=== PATIENT | male | born 1985 | race Caucasian/White ===

== ENCOUNTER 2024-08-13 10:04 | Day surgery (SDC) | payer OTHER, SELFPAY ==
[2024-08-11 16:04] VITALS: BMI 29.5
[2024-08-13] VITALS (8 sets, daily range): BP systolic 114–131; BP diastolic 72–88; PULSE 69–89; RESP 12–18; TEMP 36.1–36.4; O2SAT 97–100; BMI 29.5
[2024-08-13] MEDS: LACTATED RINGERS 1,000 ML 42 ML IV ×2 (10:50→11:45)
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
[2024-08-13] MEDS: CEFAZOLIN 2 GM/100 ML PREMIX 100 ML IV (11:20)
--- NOTE | 2024-08-13 11:29 | SUR.OPER ---
Supine on padded OR bed, head on pillow, arms secured on padded arm boards at <90 degrees abduction, legs uncrossed, safety belt at thigh, tape over blanket over lower legs.
[2024-08-13] MEDS: BUPIVACAINE 0.25% (PF) 30 ML, EPINEPHrine 0.15 MG INJ (11:43)
--- NOTE | 2024-08-13 12:31 | P.OP_ITS ---
Operative Date/Time/Diagnoses Date of procedure: 08/13/24 Time of procedure: 11:30 Pre-op diagnosis: Painful orthopedic hardware right foot Post-op diagnosis: same Procedure & Clinicians Procedure: Hardware removal right foot Same procedure as scheduled: Yes Indications: The patient is a 38-year-old that had a [place]franc [place] He is now healed and has painful hardware with loose screws. He is indicated for hardware removal. He has a known broken drill bit 1st metatarsal. We discussed the risks of hardware removal including incomplete hardware removal with broken screws. We discussed persistent pain posttraumatic arthritis need for additional procedures. Nerve vessel damage. And wound heal ing problems or infection. The patient elects to proceed. Consent was signed. Surgeon: Macie Hansen Click Yes if Unassisted: Yes Anesthesia Type: General and Local Operative Notes Findings: Retained Lisfranc plate and screws spanning the 1st and 2nd TMT joints. There is retained broken drill bit in the 1st metatarsal. On screw removal 1 of the 1st metatarsal base screws did break off and was retained in the bone. The remainder of the plate and screws removed. Hardware removal was confirmed on intraoperative fluoroscopy. Closure Type: primary Specimen(s): none sent Estimated Blood Loss (mL): 5 Blood products transfused: none Tourniquet time (min): 36 Procedure in detail: Patient was seen in the preoperative area the site of surgery was marked informed consent confirmed this was the right foot. The patient was brought back to the operating room by the anesthesia team positioned supine position on the table. The bony prominences well padded. An SCD was placed on the contralateral lower extremity. A well-padded thigh tourniquet was placed on the operative extremity. The right lower extremity was prepped and draped in standard sterile fashion a formal time-out procedure was performed confirming the patient's side and site of surgery administration of appropriate preoperative antibiotic and presence of informed consent. All were in agreement. Attention turned to the right foot there was a longitudinal incision between the 1st and 2nd metatarsals over the dorsum of the foot this scar was then reopened careful dissection was taken both medial and lateral to the neurovascular bundle and incision deep was made just medial to the EHL tendon down onto the plate and screws along the 1st metatarsal additionally laterally in the area of the prominent 2nd metatarsal base screw deep dissection was taken lateral to the neurovascular bundle to expose the lateral aspect of the plate. Screws were removed with a screwdriver. One of the 1st metatarsal base screws did break off during removal. The screw head was removed and the screw shaft maintained bone. Once this was completed osteotome and [place] were used to elevate plate and the plate was removed. Rongeur was used to remove bony prominences. Once this was completed tourniquet was released hemostasis was achieved and the wound was irrigated and closed with 4-0 Monocryl and 4-0 nylon suture. 10 cc of 0.25% Marcaine with epinephrine were injected for local anesthetic. A soft dressing with Xeroform gauze and Webril and Jorge wrap was applied. The patient was taken to the recovery room in good condition there were no immediate complications from this procedure. All counts were. Complications: none Post-operative Condition: stable Disposition: PACU Plan for aftercare: Weightbear as tolerated in hard-soled shoe or boot. Keep dressing clean dry and intact until follow up. Sutures remain in place 2-3 weeks.
[2024-08-13] MEDS: OXYCODONE/ACETAMINOPHEN 5/325 TABLET 1 TAB PO (13:09)
== END 2024-08-13 13:30 | disposition home or self-care (01) ==
PROVIDERS: PCP Nurse Practitioner Family; Referring Provider Orthopaedic Surgery; Visit Provider Orthopaedic Surgery Foot and Ankle Surgery
PROC: (CPT 20680; principal; 2024-08-13 11:15)
DX: T84.84XA Pain due to internal orthopedic prosthetic devices, implants and grafts, initial encounter (principal); T84.213A Breakdown (mechanical) of internal fixation device of bones of foot and toes, initial encounter; S92.811S Other fracture of right foot, sequela; V29.99XS Rider (driver) (passenger) of other motorcycle injured in unspecified traffic accident, sequela
CPT/HCPCS: 20680; J0171; J0690; J1100; J1885; J2250; J2405; J2704; J3010

== ENCOUNTER → 2025-01-19 08:09 | Outpatient (CLI) | payer OTHER, SELFPAY ==
--- NOTE | 2025-01-19 08:20 | DI.RAD.S_ITS ---
PROCEDURE: XR FOOT RT 2V INDICATIONS: VA DISABILITY TECHNIQUE: 2 views of the foot were acquired. COMPARISON: None. FINDINGS: Bones: No fractures or dislocations. No suspicious bony lesions. Surgical hardware is noted within the base of the 1st metatarsal without evidence of complication. Degenerative changes are present at the 1st and 2nd tarsometatarsal joints with marginal osteophytosis. Soft tissues: No tibiotalar joint effusion. Achilles tendon appears normal. IMPRESSION: Degenerative and postsurgical change without evidence of acute osseous abnormality or hardware complication. Dictated by: Devon Grover M.D. on 01/20/2025 at 4:48 Approved by: Devon Grover M.D. on 01/20/2025 at 4:49
--- NOTE | 2025-01-19 08:21 | DI.RAD.S_ITS ---
PROCEDURE: XR HAND RT 2V INDICATIONS: VA DISABILITY TECHNIQUE: 2 views of the hand(s) acquired. COMPARISON: None. FINDINGS: Bones: No fractures or dislocations. Carpal bones are normally aligned. No suspicious bony lesions. Soft tissues: No suspicious soft tissue calcifications. IMPRESSION: No acute bony abnormality. Dictated by: Devon Grover M.D. on 01/20/2025 at 4:45 Approved by: Devon Grover M.D. on 01/20/2025 at 4:46
--- NOTE | 2025-01-19 08:21 | DI.RAD.S_ITS ---
PROCEDURE: XR HAND LT 2V INDICATIONS: VA DISABILITY TECHNIQUE: 2 views of the hand(s) acquired. COMPARISON: None. FINDINGS: Bones: No fractures or dislocations. Carpal bones are normally aligned. No suspicious bony lesions. Soft tissues: No suspicious soft tissue calcifications. IMPRESSION: No acute bony abnormality. Dictated by: Devon Grover M.D. on 01/20/2025 at 4:47 Approved by: Devon Grover M.D. on 01/20/2025 at 4:47
--- NOTE | 2025-01-19 08:21 | DI.RAD.S_ITS ---
PROCEDURE: XR WRIST RT 2V INDICATIONS: VA DISABILITY TECHNIQUE: 2 views of the wrist were acquired. COMPARISON: None. FINDINGS: Bones: No fractures or dislocations. No suspicious bony lesions. Soft tissues: No suspicious soft tissue calcifications. IMPRESSION: No acute bony abnormality. Dictated by: Devon Grover M.D. on 01/20/2025 at 4:46 Approved by: Devon Grover M.D. on 01/20/2025 at 4:47
--- NOTE | 2025-01-19 08:23 | DI.RAD.S_ITS ---
PROCEDURE: XR CLAVICLE LT INDICATIONS: VA DISABILITY TECHNIQUE: 2 views of the clavicle were acquired. COMPARISON: None. FINDINGS: Bones: Old healed mid clavicular fracture with extensive callus formation. No acute fractures or dislocations. No suspicious bony lesions. Soft tissues: No suspicious soft tissue calcifications. IMPRESSION: No acute bony abnormality. Old healed right midclavicular fracture noted. Dictated by: Devon Grover M.D. on 01/20/2025 at 4:49 Approved by: Devon Grover M.D. on 01/20/2025 at 4:50
--- NOTE | 2025-01-19 08:23 | DI.RAD.S_ITS ---
PROCEDURE: XR RIBS BI MIN 4V W CXR1V INDICATIONS: VA DISABILITY TECHNIQUE: 2 views of the ribs were acquired, along with a single view chest. COMPARISON: None. FINDINGS: Surgical changes and devices: None. Bones and chest wall: No fractures or dislocations. No suspicious bony lesions. Overlying soft tissues appear unremarkable. Lungs and pleura: No pleural effusions or pneumothorax. Lungs appear clear. Mediastinum: Mediastinal contours appear normal. Heart size is normal. IMPRESSION: No displaced rib fracture or pneumothorax. Dictated by: Devon Grover M.D. on 01/20/2025 at 4:50 Approved by: Devon Grover M.D. on 01/20/2025 at 4:51
--- NOTE | 2025-01-19 08:30 | DI.ECHO.S_ITS ---
[facility] +---------+ [facility] : : [address] : : [place] : : [id number] : : Phone: [phone] Echocardiogram Report + + :Name: SUJEY BAKER Study Date: 01/19/2025 Height: 74 in : :Hospital ReadingLocation: Weight: 220 lb : : Gender: Male BSA: 2.3 m2 : :: 1985 Age: 39 yrs BP: 134/88 mmHg: :Reason For Study: PAIN : :Ordering Physician: ANITA, : :ALIA Performed By: Nancy Staples : :Referring: ALIA HOWARD : + + Interpretation Summary Normal echo study. Procedure: A two-dimensional transthoracic echocardiogram with color flow and Doppler was performed. The study quality was technically adequate. There is no prior echocardiogram noted for this patient. The patient was in sinus rhythm with heart rates between 72-81 bpm during the exam. Left Ventricle: The left ventricle appears normal in size, wall thickness, and systolic function without any focal wall motion abnormalities. The ejection fraction is estimated to be 55-60%. Right Ventricle: The right ventricle is normal in size and function. Atria: The left atrial size is normal. The right atrium is normal in size. There is no Doppler evidence for an interatrial shunt. Mitral Valve: The mitral valve leaflets appear to open well. There is no mitral regurgitation noted. Aortic Valve: The aortic valve is trileaflet. The aortic valve opens well. There is no aortic valve stenosis. No aortic regurgitation is present. Tricuspid Valve: The tricuspid valve leaflets are thin and pliable. No tricuspid regurgitation. Pulmonary artery pressures cannot be estimated because of the lack of a measurable TR jet velocity. Pulmonic Valve: The pulmonic valve leaflets are thin and pliable; valve motion is normal. There is trace pulmonic regurgitation. Great Vessels: The aortic root is normal size. The dimensions of the ascending aorta are normal. The IVC is of normal diameter and collapses greater than 50% with a sniff. This suggests a low right atrial pressure of 3 mm Hg. Pericardium/ Pleura There is no pericardial effusion. There is no pleural effusion. MMode/2D Measurements & Calculations LVIDd: 4.7 cm LVOT diam: 2.1 cm LVIDs: 3.4 cm Ao root diam: 3.6 cm FS: 28.3 % asc Aorta Diam: 2.8 cm EPSS: 0.47 cm Ao Arch Diam (Prox Trans): 2.9 cm IVSd: 0.76 cm LVPWd: 0.87 cm LV reed. diameter/BSA (cm/m^2): 2.1 LV sys. diameter/BSA (cm/m^2): 1.5 LA A2 area: 14.5 cm2 RA long axis: 4.9 cm LA A4 area: 16.9 cm2 RA area: 15.3 cm2 LA length (vol): 4.8 cm RA vol: 40.7 ml LA vol: 42.8 ml RA : 18.0 ml/m2 LA vol index: 18.9 ml/m2 IVC diam: 2.0 cm RVD1 (basal): 4.4 cm TAPSE: 2.3 cm Doppler Measurements & Calculations Ao V2 max: 108.4 cm/sec LVOT Max Erickson: 84.7 cm/sec Ao V2 mean: 77.6 cm/sec LV V1 max P.9 mmHg Ao max P.7 mmHg LV V1 VTI: 15.9 cm Ao mean P.7 mmHg WILLIAM(I,D): 2.9 cm2 Ao V2 VTI: 19.0 cm WILLIAM(V,D): 2.8 cm2 sev ratio: 0.84 WILLIAM indexed to BSA (cm^2/m^2): 1.3 MV E max erickson: 58.5 cm/sec PA pr(Accel): 32.8 mmHg MV A max erickson: 46.2 cm/sec MV E/A: 1.3 Med Peak E' Erickson: 10.9 cm/sec E/E' med: 5.4 Lat Peak E' Erickson: 11.9 cm/sec E/E' lat: 4.9 E/e' average: 5.1 MV dec time: 0.26 sec SV(LVOT): 56.2 ml Electronically signed by: Emi Rea on Reading Physician:01/19/2025 04:35 PM
[2025-01-19 08:51] LABS: Add Manual Diff / Slide Review NO; Basophils Absolute Auto 100 /uL (0-100); Eosinophils Absolute Auto 200 /uL (0-450); Eosinophils Percent Auto 3.9 % (2-4); Hematocrit 49.6 % (41-53); Lymphocytes Absolute Auto 2100 /uL (1100-4500); Lymphocytes Percent Auto 35.8 % (25-40); Mean Corpuscular HGB Conc 34.2 % (30-36); Mean Corpuscular Hemoglobin 32.3 PG (26-34); Mean Corpuscular Volume 94.3 fL (80-100); Monocytes Absolute Auto 700 /uL (0-900); Neutrophils Absolute Auto 2800 /uL (1500-7000); Neutrophils Percent Auto 47.3 % (50-75); Platelet Count 274 X10^3/uL (150-400); Red Blood Cell Count 5.26 X10^6/uL (4.5-5.9); Red Cell Distribution Width 14.2 % (11.6-14.8)
--- NOTE | 2025-01-19 08:56 | EKG_ITS ---
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
[2025-01-19 09:20] LABS: Alanine Aminotransferase 35 IU/L (<50); Albumin 4.6 g/dL (3.5-5.0); Albumin Globulin Ratio 1.9 (1.0-2.8); Alkaline Phosphatase 97 U/L (38-126); Aspartate Aminotransferase 32 IU/L (17-59); BUN Creatinine Ratio 9.2 (6-22); Bilirubin Total 1.6 mg/dL (0.2-1.3); Blood Urea Nitrogen 8 mg/dL (9-20); Calcium 9.4 mg/dL (8.4-10.2); Carbon Dioxide 23 mmol/L (22-32); Chloride 107 mmol/L (98-107); Estimated Glomerular Filt Rate > 60 mL/min (>60); Globulin 2.4 g/dL (1.7-4.1); Glucose 113 mg/dL (70-100); HEMOLYSIS < 15 (0-50); Potassium 4.7 mmol/L (3.4-5.1); Sodium 140 mmol/L (137-145)
[2025-01-19 09:37] LABS: Vitamin D 25 Hydroxy (D3) 20.6 ng/mL (30.0-100.0)
[2025-01-19 09:38] LABS: Appearance Urine UA CLEAR; Bilirubin Urine UA 1+ (NEGATIVE); Color Urine UA YELLOW; Glucose Urine UA NEGATIVE (Negative); Ketones Urine UA TRACE (NEGATIVE); Leukocyte Esterase Urine UA NEGATIVE (NEGATIVE); Nitrite Urine UA NEGATIVE (Negative); Occult Blood Urine UA NEGATIVE (Negative); Protein Urine UA TRACE (Negative); Specific Gravity Urine UA >=1.030 (1.000-1.035); Urobilinogen Urine UA 0.2 E.U./dL (0.2); pH Urine UA 5.5 (4.5-8.0)
[2025-01-19 09:41] LABS: Ictotest Urine Negative (Negative); Urine Volume 10mL (spun)
[2025-01-19 09:42] LABS: Bacteria Urine None Seen; Calcium Oxalate Crystals Urine Few; RBC Urine None Seen (0-5/HPF); Squamous Epithelial Cell Urine 1-5 /HPF (0-5/HPF); WBC Urine None Seen (0-5/HPF)
== END ==
PROVIDERS: PCP Nurse Practitioner Family; Referring Provider Chiropractor; Visit Provider Chiropractor
DX: M13.80 Other specified arthritis, unspecified site (principal); I25.9 Chronic ischemic heart disease, unspecified; Z98.890 Other specified postprocedural states; Z87.81 Personal history of (healed) traumatic fracture
CPT/HCPCS: 36415; 71111; 73000; 73100; 73120; 73620; 80053; 81001; 82306; 85025; 93005; 93306

== ENCOUNTER → 2025-01-19 08:25 | Outpatient (CLI) | payer OTHER, SELFPAY ==
--- NOTE | 2025-01-19 08:27 | DI.MRI.S_ITS ---
PROCEDURE: MR LUMBAR SPINE WO CON INDICATIONS: low back pain TECHNIQUE: Noncontrast sagittal T1 spin echo and T2 fast echo, sagittal STIR, and T2 fast spin echo through the lumbar spine. In cases with scoliosis, additional coronal T2 fast spin echo may be performed. COMPARISON: None. FINDINGS: Image quality: Excellent. Alignment and Curvature: There is minimal anterolisthesis seen at L5-S1. The Bone Marrow: Marrow is of normal overall signal. No acute vertebral body compression fractures. Spinal Cord: Conus medullaris terminates at the T12-L1 level. Visualized cord demonstrates normal signal and size. Paraspinous Soft Tissues: No paravertebral masses. T12-L1: Normal appearance. L1-L2: Normal appearance. L2-L3: Normal appearance. L3-L4: Normal appearance. L4-L5: Normal appearance. L5-S1: Moderate loss of disc height is seen. Loss of disc signal is seen. Mild bulge there is a mild central disc extrusion, with superior migration of the disc material. There is a focal annular fissure seen posteriorly. There is mild right-sided and no significant left-sided neural foraminal narrowing. Minimal central canal narrowing is seen. IMPRESSION: Focal L5-S1 degenerative change is seen. Dictated by: Dao Herrera M.D. on 01/19/2025 at 13:46 Approved by: Dao Herrera M.D. on 01/19/2025 at 13:47
== END ==
PROVIDERS: PCP Nurse Practitioner Family; Referring Provider Nurse Practitioner Family; Visit Provider Nurse Practitioner Family
DX: M54.50 Low back pain, unspecified (principal); M47.817 Spondylosis without myelopathy or radiculopathy, lumbosacral region
CPT/HCPCS: 72148

== ENCOUNTER 2025-08-13 15:06 | Outpatient (CLI) | payer OTHER, SELFPAY ==
[2025-08-13] VITALS (8 sets, daily range): BP systolic 103–129; BP diastolic 58–73; PULSE 64–78; RESP 12–18; TEMP 36.7; O2SAT 96–98
[2025-08-13] MEDS: MIDAZOLAM 2 MG/2 ML VIAL IV (16:24)
[2025-08-13] MEDS: BETAMETHASONE 30 MG/5 ML MDV 12 MG INJ (16:28)
[2025-08-13] MEDS: BETAMETHASONE 30 MG/5 ML MDV 6 MG INJ (16:30)
--- NOTE | 2025-08-13 16:43 | PM.PROC.IR.1 ---
Date/Time/Diagnoses Date of procedure: 08/13/25 Time of procedure: 16:43 Pre-procedure diagnosis: FORAMINAL STENOSIS WITH LE SYMPTOMS Post-procedure diagnosis: same Procedure Notes Procedure: 1. FLUOROSCOPICALLY GUIDED CONTRAST CONTROLLED TRANSFORAMINAL EPIDURAL STEROID INJECTION - RIGHT L5/S1 TFESI Indications: Melvin is referred by ALARM MECHANIC Denise for treatment of Foraminal Stenosis with Right LE Symptoms Physician: Brice Kelley Total Fluoroscopy time (seconds): 9 Total sedation minutes: 13 Complications: none Procedure in detail & Post-procedure care: FINDINGS Foraminal Nerve Root Compression secondary to disc disease and facet hypertrophy DESCRIPTION OF PROCEDURE Following review of allergy and review of potential side effects and complications, including, but not necessarily limited to, infection, allergic reaction, local tissue breakdown, stroke, temporary or permanent nerve injury, paralysis, and possible , the patient indicated that the patient understood and agreed to proceed. An informed consent document was signed by the patient, witnessed by a nurse, and placed in the patient's chart. Additionally, other treatment options including medications, modalities, and physical therapy were reviewed with the patient. After review of previous anaesthesic history and IV conscious sedation the patient was deemed safe to proceed with today?s procedure with IV conscious sedation as ASA class II designation. Safety time-out was performed to confirm patient ID, procedure to be performed and site of procedure. IV sedation was accomplished with a combination of 2mg of Versed was administered by the RN after DO order, titrated to patient comfort during the course of the procedure while the patient remained responsive to all verbal commands In the prone position following sterile prep and drape of the lumbar region, the right L5/S1 posterior neuroforamen was identified fluoroscopically. The skin was anesthetized via a 25-gauge 1.5-inch needle with 1% lidocaine solution. At this point, a 25-gauge 3.5-inch spinal needle was atraumatically introduced and advanced under fluoroscopic guidance through the posterior right L5/S1 neuroforamen to approximately the anterior aspect of the canal. Depth was confirmed on lateral view. Following negative aspiration, injection of approximately 1.5cc of Isovue 200 under live fluoroscopy in the AP view confirmed excellent flow along the nerve root, into the epidural space without vascular or intrathecal uptake observed Radiological data, including multiple fluoroscopic views of the lumbosacral spine, reveal a spinal needle at the right L5/S1 posterior neuroforamen. Subsequent views show flow of contrast material flowing superiorly and inferiorly along the nerve root confirming epidural flow. Subsequently, a test dose of 1.5cc of 0.25% marcaine solution was administered and patient was observed for two minutes for signs or symptoms of complications, including abdominal pain, shortness of breath, bilateral upper or lower extremity weakness, nausea and vomiting, prior to steroid injection. At this point, a total of 4cc or 10mg of dexamethasone and 18mg of betamethasone was injected without incident. The procedure tolerated the procedure well without signs or symptoms of complications prior to transfer to the recovery area continued monitoring without incident. The patient was then transferred to the recovery area where they were observed for an appropriate time after the injection. The patient reported a VAS score of 7 prior to the procedure and a post-procedure VAS of 0. POST OP INSTRUCTIONS The patient was provided a Pain Log to continue to record their response to the target-specific procedure prior to follow-up visit with their referring physician. Additionally, specific post-injection care instructions and a contact number to our office were provided if concerns arise regarding possible complications associated with the procedure are suspected.
== END 2025-08-13 17:11 | disposition home or self-care (01) ==
LOC: RAD 15:07
PROVIDERS: PCP Nurse Practitioner Family; Referring Provider Physical Medicine & Rehabilitation; Visit Provider Physical Medicine & Rehabilitation
DX: M48.07 Spinal stenosis, lumbosacral region (principal); M51.17 Intervertebral disc disorders with radiculopathy, lumbosacral region; M47.27 Other spondylosis with radiculopathy, lumbosacral region
CPT/HCPCS: 64483; 99152; J0702; J1100; J2250

== ENCOUNTER 2025-09-18 14:28 | Emergency (ER) | payer OTHER, SELFPAY ==
[2025-09-18] VITALS (8 sets, daily range): BP systolic 118–139; BP diastolic 73–86; PULSE 66–81; RESP 13–25; TEMP 37.1; O2SAT 94–99; BMI 28.2
--- NOTE | 2025-09-18 14:40 | EKG_ITS ---
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
--- NOTE | 2025-09-18 14:40 | DI.RAD.S_ITS ---
PROCEDURE: XR CHEST 1V INDICATIONS: Chest Pain TECHNIQUE: One view of the chest was acquired. COMPARISON: None. FINDINGS: Surgical changes and devices: None. Lungs and pleura: Lungs are clear. No pleural effusions or pneumothorax. Mediastinum: Mediastinal contours appear normal. Heart size is normal. Bones and chest wall: No suspicious bony lesions. Old healed midshaft left clavicular fracture. Overlying soft tissues appear unremarkable. IMPRESSION: No source of new onset chest pain is found. Old healed midshaft left clavicular fracture. Dictated by: Flash Reyes M.D. on 09/18/2025 at 15:42 Approved by: Flash Reyes M.D. on 09/18/2025 at 15:42
[2025-09-18 15:05] LABS: Add Manual Diff / Slide Review NO; Hematocrit 47.3 % (41-53); Hemoglobin 16.4 g/dL (13.5-17.5); Lymphocytes Absolute Auto 2000 /uL (1100-4500); Mean Corpuscular HGB Conc 34.6 % (30-36); Mean Corpuscular Hemoglobin 31.5 PG (26-34); Mean Corpuscular Volume 91.1 fL (80-100); Platelet Count 278 X10^3/uL (150-400)
[2025-09-18 15:10] LABS: INR 1.1 (0.9-1.3); Prothrombin Time 12.4 SECONDS (9.4-12.5)
[2025-09-18 15:12] LABS: PTT Partial Thromboplastin Tim 30 SECONDS (25.1-36.5)
[2025-09-18 15:14] LABS: Alanine Aminotransferase 32 IU/L (<50); Albumin 5.0 g/dL (3.5-5.0); Albumin Globulin Ratio 1.7 (1.0-2.8); Alkaline Phosphatase 89 U/L (38-126); Blood Urea Nitrogen 7 mg/dL (9-20); Calcium 9.5 mg/dL (8.4-10.2); Carbon Dioxide 24 mmol/L (22-32); Chloride 101 mmol/L (98-107); Creatine Kinase 85 U/L (55-170); Estimated Glomerular Filt Rate > 60 mL/min (>60); Globulin 2.9 g/dL (1.7-4.1); Glucose 112 mg/dL (70-99); HEMOLYSIS < 15 (0-50); Lipase 66 U/L (23-300); Magnesium 1.9 mg/dL (1.6-2.3); Potassium 4.2 mmol/L (3.4-5.1); Sodium 136 mmol/L (137-145); Total Protein 7.9 g/dL (6.3-8.2)
--- NOTE | 2025-09-18 15:22 | ED.CHESTPAIN ---
HPI - Chest Pain General Chief Complaint: Chest Pain Stated Complaint: poss heart attack, PC ref Time Seen by Provider: 09/18/25 15:02 Source: patient Mode of arrival: Ambulatory History of Present Illness HPI narrative: 40-year-old gentleman history of hypertension and anxiety presents with intermittent sternum chest pain since Sunday after being up for 24 hours flight being delayed and canceled and then having to fly for 6 hours. Patient has had intermittent chest pain that comes and goes described as being uncomfortable and has not taken anything for it with no radiating symptoms of nausea vomiting jaw pain arm pain back pain neck pain. This past Sunday he was sitting on the couch and stood up very quickly as he was upset at his child and apparently passed out for about a minute. At that time he did have a headache in the back and top of the head but denies any loc, changes in vision, nausea, vomiting, fever, chills, stiff neck, sore throat, cough, weakness, in the arms, legs, bowel, or bladder incontinence or any seizure history. He was seen today at the [facility] who recommended that he come to the ER for further evaluation at this time. Other than what is stated 14 point review of system is negative. Related Data Home Medications ?Medication ?Instructions ?Recorded ?Confirmed lisinopril 10 mg tablet 10 mg PO DAILY 08/13/24 07/22/25 rizatriptan 5 mg disintegrating 1 mg PO PRN PRN Headache 08/13/24 07/22/25 tablet Previous Rx's ?Medication ?Instructions ?Recorded meloxicam 15 mg tablet 15 mg PO QAM #30 tabs 07/22/25 Allergies Allergy/AdvReac Type Severity Reaction Status Date / Time morphine AdvReac Intermediate Vomiting Verified 09/18/25 14:42 Review of Systems Review of Systems ROS Unobtainable: All systems reviewed & are unremarkable except as noted in HPI and below Patient History Medical History Facet arthropathy, lumbar Herniated nucleus pulposus, L5-S1, right Hx of migraine headaches Hypertension Lumbar radiculopathy Family History Mother Eczema Migraine Father Hypertension Social History marital status: number of children: 2 household members: spouse Smoking Status: Never smoker alcohol intake: current caffeine: Yes Smoking Status: Never smoker alcohol intake frequency: 0-2 drinks per day Alcohol type: beer Exam Narrative Exam Narrative: GENERAL: [40] year old patient appears stated age. Well-developed patient, in mild distress. HEAD: Atraumatic. Normocephalic. EYES: Pupils equal round and reactive. Extraocular motions intact. No scleral icterus. No injection or drainage. ENT: Nose without bleeding, purulent drainage. Throat without erythema, tonsillar hypertrophy or exudate. Airway patent. NECK: Trachea midline. Non tender CARDIOVASCULAR: Regular rate and rhythm without murmurs, gallops, or rubs. RESPIRATORY: Clear to auscultation. Breath sounds equal bilaterally. No wheezes, rales, or rhonchi. GASTROINTESTINAL: Abdomen soft, non-tender, nondistended. EXTREMITIES: No edema or joint tenderness. BACK: Nontender without deformity or crepitance. No flank tenderness. NEURO: AOx3. SKIN: No rash or erythema of visible areas Initial Vital Signs Initial Vital Signs: Vital Signs Temperature 98.7 F 09/18/25 14:33 Pulse Rate 79 09/18/25 14:33 Respiratory Rate 18 09/18/25 14:33 Blood Pressure 139/86 09/18/25 14:33 Pulse Oximetry 98 09/18/25 14:33 Oxygen Delivery Method Room Air 09/18/25 14:33 Scores HEART Score Heart Score history: Slightly Suspicious Heart Score EKG: Normal Heart Score Age: < 45 years old Heart Score risk factors: 1-2 risk factors Heart Score troponin: < or = to normal limit Heart Score Total: 1 Course Orders Ordered: ED Orders 09/18/25 14:40 XR chest 1V Stat EKG-12 Lead Stat 09/18/25 14:50 Complete Blood Count AUTO DIFF Stat Comprehensive Metabolic Panel Stat D Dimer Stat Lipase Stat Magnesium Stat NT-proBNP (BNP-Adult 18+) Stat PTT Partial Thromboplastin Josesito Stat Prothrombin Time INR Stat Troponin & CK Cardiac Panel Stat 09/18/25 16:39 Troponin I Stat Discontinued Medications Aspirin (Aspirin 81 Mg Chew Tab) 324 mg PO NOW ONE Stop: 09/18/25 14:40 Last Admin: 09/18/25 15:35 Dose: 324 mg Documented By: CAITIE Vital Signs Vital signs: Vital Signs - 8 hr 10/31/25 14:33 09/18/25 14:53 09/18/25 14:54 Temperature 98.7 F Pulse Rate 79 81 68 Respiratory Rate 18 13 17 Blood Pressure 139/86 Pulse Oximetry 98 94 98 Oxygen Delivery Method Room Air 09/18/25 14:54 09/18/25 15:00 09/18/25 15:00 Temperature Pulse Rate 71 Respiratory Rate 15 Blood Pressure 138/82 127/81 Pulse Oximetry 97 Oxygen Delivery Method 09/18/25 15:30 09/18/25 15:30 09/18/25 16:00 Temperature Pulse Rate 70 69 Respiratory Rate 25 H 16 Blood Pressure 136/81 Pulse Oximetry 98 98 Oxygen Delivery Method 09/18/25 16:00 09/18/25 16:30 09/18/25 16:30 Temperature Pulse Rate 69 Respiratory Rate 16 Blood Pressure 125/82 128/77 Pulse Oximetry 99 Oxygen Delivery Method 09/18/25 17:00 09/18/25 17:00 Temperature Pulse Rate 66 Respiratory Rate 15 Blood Pressure 118/73 Pulse Oximetry 99 Oxygen Delivery Method MDM - Chest Pain Lab Data 09/18/25 14:50 09/18/25 14:50 Labs: Lab Results 09/18/25 09/18/25 Range/Units 14:50 16:39 WBC 7.4 (4.5-11.0) X10^3/uL RBC 5.20 (4.5-5.9) X10^6/uL Hgb 16.4 (13.5-17.5) g/dL Hct 47.3 (41-53) % MCV 91.1 (80-100) fL MCH 31.5 (26-34) PG MCHC 34.6 (30-36) % RDW 14.3 (11.6-14.8) % Plt Count 278 (150-400) X10^3/uL Neut % (Auto) 62.7 (50-75) % Lymph % (Auto) 26.5 (25-40) % Lea % (Auto) 7.2 (3-14) % Eos % (Auto) 3.1 (2-4) % Baso % (Auto) 0.5 (0-2) % Neut # (Auto) 4600 (5485-7132) /uL Lymph # (Auto) 2000 (4626-3606) /uL Lea # (Auto) 500 (0-900) /uL Eos # (Auto) 200 (0-450) /uL Baso # (Auto) 0 (0-100) /uL PT 12.4 (9.4-12.5) SECONDS INR 1.1 (0.9-1.3) APTT 30 (25.1-36.5) SECONDS D-Dimer < 215 (<500) ng/ml Sodium 136 L (137-145) mmol/L Potassium 4.2 (3.4-5.1) mmol/L Chloride 101 (98-107) mmol/L Carbon Dioxide 24 (22-32) mmol/L BUN 7 L (9-20) mg/dL Creatinine 0.85 (0.66-1.25) mg/dL Estimated GFR > 60 (>60) mL/min BUN/Creatinine Ratio 8.2 (6-22) Glucose 112 H (70-99) mg/dL Calcium 9.5 (8.4-10.2) mg/dL Magnesium 1.9 (1.6-2.3) mg/dL Total Bilirubin 1.6 H (0.2-1.3) mg/dL AST 27 (17-59) IU/L ALT 32 (<50) IU/L Alkaline Phosphatase 89 (38-126) U/L Total Creatine Kinase 85 (55-170) U/L Troponin I < 0.012 < 0.012 (0.01-0.034) ng/mL NT-Pro-B Natriuret Pep < 20 (<125) pg/mL Total Protein 7.9 (6.3-8.2) g/dL Albumin 5.0 (3.5-5.0) g/dL Globulin 2.9 (1.7-4.1) g/dL Albumin/Globulin Ratio 1.7 (1.0-2.8) Lipase 66 (23-300) U/L ECG Data Interpretation: NSR HR 76 IA 144 QRS [address]-t wave change NO previous EKG to compare MDM Narrative Medical decision making narrative: All lab work vital signs nurse triage note medication list previous ER visits and all imaging studies reviewed. Heart score 1. EKG normal sinus rhythm with no STT wave changes. Troponin less than 0.012 BNP less than 20 D-dimer less than 215 WBC 7.4 Hg 16.4 platelets 278 INR 1.1 sodium 136 potassium 4.2 chloride 101 CO2 24 BUN 7 creatinine 0.85 glucose 112 knees and 1.9 T bili 1.6 unchanged from 1.6 from January 19, 2025. Second troponin less than 0.012. Differential diagnosis anxiety GERD chest wall PE unstable angina. Patient given aspirin here. Discharge Plan Departure Patient Disposition: Home Clinical Impression: Chest pain Qualifiers: Chest pain type: chest pain on breathing Qualified Code(s): R07.1 - Chest pain on breathing Instructions: DI for Chest Pain Activity Restrictions/Additional Instructions: Return with new or worsening symptoms. Follow up with PCP referral for cardiac stress test. Prescriptions: No Action lisinopril 10 mg tablet 10 mg PO DAILY rizatriptan 5 mg tablet,disintegrating 1 mg PO PRN PRN (Reason: Headache) meloxicam 15 mg tablet 15 mg PO QAM Qty: 30 2RF Referrals: Quynh Walker FNP-C [Primary Care Provider, Nursing] Stand Alone Forms: Patient Portal/API
[2025-09-18 15:25] LABS: NT-proBNP (BNP-Adult 18+) < 20 pg/mL (<125); Troponin I < 0.012 ng/mL (0.01-0.034)
[2025-09-18] MEDS: ASPIRIN 81 MG CHEW TAB 324 MG PO (15:35)
[2025-09-18 17:18] LABS: Troponin I < 0.012 ng/mL (0.01-0.034)
== END 2025-09-18 17:54 | disposition home or self-care (01) ==
PROVIDERS: Emergency Medicine; Emergency Provider Family Medicine; PCP Nurse Practitioner Family
DX: R07.1 Chest pain on breathing (principal)
CPT/HCPCS: 36415; 71045; 80053; 82550; 83690; 83735; 83880; 84484; 85025; 85379; 85610; 85730; 93005; 93010; 99284